=== PATIENT | female | born 1965 | race Native Hawaiian/Other Pacific Islander ===

== ENCOUNTER 2025-04-08 10:26 | Outpatient (CLI) | payer BC | END 2025-04-08 23:59 | disposition home or self-care (01) | LOC: WOU 10:26 | PROVIDERS: ATTEND Student in an Organized Health Care Education/Training Program | DX: E65 Localized adiposity (principal); R63.4 Abnormal weight loss; Z68.22 Body mass index [BMI] 22.0-22.9, adult; Z98.84 Bariatric surgery status | CPT/HCPCS: G0463 ==